=== PATIENT | female | born 1995 | race Caucasian/White ===

== ENCOUNTER 2019-09-21 21:57 | Emergency (ER) | payer OTHER ==
[~2019-09-21] VITALS: Ht 154.9 cm; Wt 47.6 kg
[2019-09-22] MEDS ORDERED: ZOFRAN4 MG PO (04:58)
[2019-09-22] MEDS ORDERED: PEPCID40 MG PO (04:58)
== END 2019-09-22 04:45 | disposition home or self-care (01) ==
LOC: ER 21:57
DX: E86.0 Dehydration (principal); R07.89 Other chest pain